=== PATIENT | male | born 1935 ===

== ENCOUNTER → 2017-07-28 | Outpatient (CLI) | payer MEDICARE, OTHER ==
[~2017-07-28] MED LIST: ACET500 PO; ALEN70 PO; AMIO200 PO; AMIODARONE; ASCO500 PO; ASPI325 PO; ASPI81CH PO; ATOR40TA PO; Aldactone25 MG PO; Amiodarone HCl200 MG PO; BISA10S PR; CARV25 PO; CARV3.125 PO; CARV6.25 PO; CARVEDILOL; CHOL10002 PO; COMPAZINE; CVS DAILY MULT1 EAC1 PO; CYCL10 PO; Calcium 600 +1 EAC1 PO; DABI150C PO; DIAZ5 PO; DIGO.125 PO; DIPH50 PO; DOC250 PO; DOCU100 PO; DSS; FERR325 PO; FINA5 PO; FURO20 PO; FURO40 PO; Glucoten Caple1 EACH PO; HYDACE5 PO; Hair, Skin & N1 EACH PO; Isosorbide Mono30 MG PO; Isosorbide Mono60 MG PO; LISI20 PO; LISI5 PO; LISINOPRIL; LORA1 PO; METO50 PO; MULTI-DAY PLUS1 EAC1 PO; NABU500 PO; NITR.4SL SL; OXYACE5T PO; PANT40 PO; POTCHL10ER PO; POTCHL20ER PO; PRED10 PO; PREDNISONE; SENNA; SOTO80 PO; SPIR25 PO; STOOL SOFTENER1 EAC1 PO; Senna S Tablet1 EACH PO; Senna8.6 MG PO; TAMS.4ER PO; TIMO.5OPSO BOTHEYES; TIMOLOL 0.5%-DO10 ML OP; XARELTO; XARELTO15 MG PO
[2017-07-28 19:49] LABS: Creatinine, Urine Random 91.5 mg/dL (27.00-270.00); Protein, Urine Random 5.1 mg/dL (0.0-11.9)
== END | disposition home or self-care (01) ==
LOC: OLS 15:53
PROVIDERS: Internal Medicine
DX: N18.3 Chronic kidney disease, stage 3 (moderate) (principal)
CPT/HCPCS: 82570; 84156

== ENCOUNTER 2018-02-23 09:03 | Emergency (ER) | payer MEDICARE, OTHER ==
[~2018-02-23] VITALS: Ht 180.3 cm; Wt 104.3 kg
[~2018-02-23 09:03] MED LIST changes: -TIMOLOL 0.5%-DO10 ML OP
[2018-02-23] MEDS ORDERED: FINA5 PO (09:33)
[2018-02-23] MEDS ORDERED: TIMOLOL 0.5%-DO10 ML OP (09:35)
[2018-02-23 10:06] LABS: BASOPHILS ABSOLUTE AUTO 0.09 K/mm3 (0.00-0.23); BASOPHILS PERCENT AUTO 1 % (0-2); EOSINOPHILS ABSOLUTE AUTO 0.19 K/mm3 (0.00-0.68); EOSINOPHILS PERCENT AUTO 2 % (0-6); Hematocrit 43.6 % (37.0-53.0); Hemoglobin 14.6 g/dL (13.5-17.5); IMMATURE GRAN ABSOLUTE AUTO 0.12 K/mm3 (0.00-0.10); IMMATURE GRAN PERCENT AUTO 1 % (0-1); LYMPHOCYTES ABSOLUTE AUTO 2.69 K/mm3 (0.84-5.20); LYMPHOCYTES PERCENT AUTO 24 % (21-46); MONOCYTES ABSOLUTE AUTO 0.91 K/mm3 (0.16-1.47); MONOCYTES PERCENT AUTO 8 % (4-13); Mean Corpuscular HGB 31.8 pg (26.0-34.0); Mean Corpuscular HGB Conc 33.5 g/dL (31.5-36.5); Mean Corpuscular Volume 95 fL (80-100); Mean Platelet Volume 10.7 fL (9.1-12.4); NEUTROPHILS PERCENT AUTO 64 % (41-73); Platelet Count 251 K/mm3 (150-400); RDW Coefficient Variation 13.2 % (11.7-14.2); RDW Standard Deviation 46.1 fL (35.1-46.3); Red Blood Cell Count 4.59 M/mm3 (4.30-5.90)
[2018-02-23 10:17] LABS: International Normalized Ratio 1.03; Prothrombin Time Results 10.6 Sec (9.7-11.5)
[2018-02-23 10:28] LABS: Alanine Aminotransfer (ALT/SGP 34 U/L (12-78); Albumin, Blood 3.4 g/dL (3.4-5.0); Albumin/Globulin Ratio 0.9 (0.8-1.8); Alk Phos 41 U/L (50-136); Anion Gap 5 mmol/L (6-16); Aspartate Aminotrans (AST/SGOT 24 U/L (12-37); Bilirubin, Total 0.8 mg/dL (0.1-1.0); Blood Urea Nitrogen 21 mg/dL (8-24); Bun/Creatinine Ratio 19.4 (12.0-20.0); CO2, Blood 29 mmol/L (21-32); Calcium, Blood 8.3 mg/dL (8.5-10.1); Chloride, Blood 104 mmol/L (98-108); Creatinine, Blood 1.08 mg/dL (0.60-1.20); Globulin, Blood 3.9 g/dL (2.2-4.0); Glomerular Filtration Rate >60 (60-); Glucose, Blood 92 mg/dL (70-99); Potassium, Blood 3.6 mmol/L (3.5-5.5); Sodium, Blood 138 mmol/L (136-145); Total Protein, Blood 7.3 g/dL (6.4-8.2); Troponin I <0.015 ng/mL (0.000-0.040)
== END 2018-02-23 12:02 | disposition home or self-care (01) ==
LOC: ER 09:03
PROVIDERS: Physician Assistant
DX: S61.511A Laceration without foreign body of right wrist, initial encounter (principal); S51.811A Laceration without foreign body of right forearm, initial encounter; S05.11XA Contusion of eyeball and orbital tissues, right eye, initial encounter; M25.511 Pain in right shoulder; Z23 Encounter for immunization; I48.91 Unspecified atrial fibrillation; I50.20 Unspecified systolic (congestive) heart failure; I25.10 Atherosclerotic heart disease of native coronary artery without angina pectoris; Z87.891 Personal history of nicotine dependence; Z79.01 Long term (current) use of anticoagulants; W19.XXXA Unspecified fall, initial encounter
CPT/HCPCS: 36415; 70450; 71046; 73030; 73060; 80053; 83690; 83880; 84443; 84484; 85025; 85610; 85730; 90471; 90714; 93005; 93010; 99284-25

== ENCOUNTER → 2018-06-29 | Outpatient (CLI) | payer MEDICARE, OTHER ==
[~2018-06-29] MED LIST changes: +TIMOLOL 0.5%-DO10 ML OP
== END ==
LOC: LAB 16:19 → LAB SHORT 16:19
DX: Z48.817 Encounter for surgical aftercare following surgery on the skin and subcutaneous tissue (principal); Z48.02 Encounter for removal of sutures; L08.9 Local infection of the skin and subcutaneous tissue, unspecified; L81.4 Other melanin hyperpigmentation
CPT/HCPCS: 87070; 87077; 87147; 87186; 87205